=== PATIENT | male | born 1940 | race Caucasian/White ===

== ENCOUNTER 2019-07-26 17:47 | Emergency (ER) | payer MEDICARE, OTHER ==
[~2019-07-26] VITALS: Ht 185.4 cm; Wt 96.6 kg
--- NOTE | 2019-07-26 17:50 | NUR ---
[id number] FRoM HOME, ETOH REQUESTED TO BE BROUGHT TO ED S/P ARGUMENT W/ , PER , HEARD PATIENT ASKING FOR HELP AND SAW PATIENT ON THE FLOOR. TO ER BED 4, HOOKED TO MONITOR, CHANGED TO HOSP GOWN, WARM BLANKET PROVIDED, PATIENT AAO x 4, BREATHING EVEN AND UNLABORED, AWAITING MD OSEI.
--- NOTE | 2019-07-26 18:14 | NUR ---
PADMA LEFT CONTACT # [phone]
[2019-07-26 18:15] LABS: BASOPHILS % (AUTO) 0.6 % (0.0-2.0); EOSINOPHILS % (AUTO) 2.9 % (0.0-6.0); HEMATOCRIT 35 % (39-51); HEMOGLOBIN 11.7 g/dL (13.5-17.5); LYMPHOCYTES # (AUTO) 1.8 /CMM (0.8-4.8); LYMPHOCYTES % (AUTO) 29.7 % (20.0-44.0); MEAN CORPUSCULAR HGB CONC 33 g/dl (31.0-36.0); MEAN CORPUSCULAR VOLUME 90 fL (80-96); MONOCYTES # (AUTO) 0.4 /CMM (0.1-1.30); MONOCYTES % (AUTO) 6.2 % (2.0-12.0); NEUTROPHILS # (AUTO) 3.7 /CMM (1.8-8.9); NEUTROPHILS % (AUTO) 60.6 % (43.0-81.0); PLATELET COUNT (AUTO) 247 /CMM (150-450); RED BLOOD CELL COUNT(AUTO) 3.91 MIL/uL (4.5-6.0); WHITE BLOOD COUNT (AUTO) 6.2 K/uL (4.3-11.0)
[2019-07-26 18:24] LABS: CALCIUM, SERUM 7.9 mg/dL (8.5-10.1); CREATININE 1.1 mg/dL (0.6-1.3); POTASSIUM 3.9 mmol/L (3.5-5.1)
[2019-07-26 18:29] LABS: ALBUMIN 3.1 g/dL (3.4-5.0); BILIRUBIN,TOTAL 0.1 mg/dL (0.2-1.0); SALICYLATE 1.1 mg/dL (2.8-20.0); TOTAL PROTEIN, SERUM 6.3 g/dL (6.4-8.2)
--- NOTE | 2019-07-26 18:29 | NUR ---
WHEELED OUT VIA [facility] FOR CT SCAN.
--- NOTE | 2019-07-26 18:38 | NUR ---
CHARTER COORDINATOR AT BEDSIDE
--- NOTE | 2019-07-26 19:10 | NUR ---
URINE SAMPLE SENT TO LAB
--- NOTE | 2019-07-26 19:22 | NUR ---
REPORT GIVEN TO DARIEN RODRIGUEZ FOR [facility]
--- NOTE | 2019-07-26 19:23 | NUR ---
RECEIVED REPORT FROM DAY RN, PT REMAINS IN ROOM RESTING COMFORTABLY, CT RESULTS PENDING
[2019-07-26 19:38] LABS: APPEARANCE,URINE Clear (CLEAR); BILIRUBIN,URINE Negative (NEGATIVE); BLOOD, URINE Trace-intact Ery/uL (NEGATIVE); COLOR,URINE Yellow (YELLOW); KETONES,URINE Trace (NEGATIVE); LEUKOCYTE ESTERASE ,URINE Negative (NEGATIVE); NITRITE, URINE Negative (NEGATIVE); PH,URINE 5.5 (5.0-8.0); PROTEIN,URINE Negative (NEGATIVE); UGLUCOSE Negative (NEGATIVE); UROBILINOGEN,URINE 0.2 EU/dL (0.2)
[2019-07-26 19:54] LABS: BACTERIA,URINE Few /HPF (None Seen); MUCUS,URINE Few /LPF (None Seen); RBC,URINE 0-2 /HPF (0-2); SQUAMOUS EPITHELIAL CELL,UR Few /HPF (None Seen); WBC,URINE 0-2 /HPF (0-3)
--- NOTE | 2019-07-26 20:11 | NUR ---
Patient discharged to home in stable condition. Written and verbal after care instructions given. Patient verbalizes understanding of instruction.
[2019-07-26 20:13] VITALS: BP 107/82
== END 2019-07-26 20:13 | disposition home or self-care (01) ==
LOC: ER 17:51
DX: F10.129 Alcohol abuse with intoxication, unspecified (principal); R51 Headache; M54.2 Cervicalgia; I10 Essential (primary) hypertension; I25.10 Atherosclerotic heart disease of native coronary artery without angina pectoris; K21.9 Gastro-esophageal reflux disease without esophagitis; F32.9 Major depressive disorder, single episode, unspecified; M19.90 Unspecified osteoarthritis, unspecified site; Z98.890 Other specified postprocedural states; Y90.6 Blood alcohol level of 120-199 mg/100 ml
CPT/HCPCS: 36415; 70450; 72125; 80048; 80076; 80305; 80307; 80329; 81001; 85025; 93005; 99285; G0480; 81000-TC

== ENCOUNTER 2020-10-19 13:59 | Outpatient (CLI) | payer MEDICARE, BC ==
[2020-10-19 17:02] LABS: ALBUMIN 3.9 g/dL (3.4-5.0); BILIRUBIN,DIRECT 0.1 mg/dL (0.0-0.2); BILIRUBIN,TOTAL 0.3 mg/dL (0.2-1.0); CREATININE 1.1 mg/dL (0.6-1.3); TOTAL PROTEIN, SERUM 7.4 g/dL (6.4-8.2)
[2020-10-20 08:55] LABS: POTASSIUM 4.5 mmol/L (3.5-5.1)
== END 2020-10-19 23:59 | disposition home or self-care (01) ==
LOC: LAB 13:59
DX: I12.9 Hypertensive chronic kidney disease with stage 1 through stage 4 chronic kidney disease, or unspecified chronic kidney disease (principal); N18.9 Chronic kidney disease, unspecified; E78.5 Hyperlipidemia, unspecified; I25.10 Atherosclerotic heart disease of native coronary artery without angina pectoris
CPT/HCPCS: 36415; 80051-TC; 80061-TC; 80076-TC; 82150-TC; 82550-TC; 82565-TC; 82947-TC; 84075-TC; 84520-TC